=== PATIENT | female | born 1990 | race American Indian/Alaskan Native ===

== ENCOUNTER 2021-09-27 10:25 | Inpatient (IN) | payer OTHER ==
[2021-09-23 16:02] VITALS: BMI 29.0
[2021-09-27] MEDS ORDERED: TERBUTALINE SULFATE 1 MG/1 ML VIAL SQ ONE ×2 (11:08→11:19)
[2021-09-27] MEDS ORDERED: ELECTROLYTE-148 SOLN 1,000 ML IV SCH (11:15)
[2021-09-27 11:58] LABS: BASO % 0.5 % (0-2.0); EOS % 0.7 % (0-4.5); HEMATOCRIT 32.2 % (32.4-45.2); HEMOGLOBIN 11.2 GM/dL (10.7-15.3); LYMPH % 15.2 % (8-40); MCHC 34.8 g/dl (32.0-36.0); MEAN CELL VOLUME 94.8 fl (80-96); MEAN PLT VOLUME 8.3 fl (7.5-11.1); MONO % 5.5 % (3.8-10.2); NEUT % 78.1 % (42.8-82.8); PLATELET COUNT 200 10^3/uL (134-434); RDW 13.5 % (11.6-15.6); WHITE BLOOD COUNT 12.4 K/mm3 (4.0-10.0)
[2021-09-27 12:06] LABS: INR 0.91 (0.83-1.09); PROTHROMBIN TIME (PATIENT) 10.4 SEC (9.7-13.0)
[2021-09-27 12:09] LABS: ACTIVATED PTT 29.5 SECONDS (25.2-36.5)
[2021-09-27 12:18] LABS: CALCIUM 8.8 mg/dL (8.5-10.1)
[2021-09-27 12:19] LABS: BLOOD UREA NITROGEN 6.6 mg/dL (7-18)
[2021-09-27 12:22] LABS: CREATININE 0.5 mg/dL (0.55-1.3)
[2021-09-27 13:24] VITALS: BP 121/61; PULSE 72; TEMP 98.9
== END 2021-09-27 15:10 | disposition home or self-care (01) | DRG 833 ==
LOC: JLDR 10:25 → EDSTATUS 10:56
PROVIDERS: ADMIT Obstetrics & Gynecology; ATTEND Obstetrics & Gynecology
DX: O32.1XX0 Maternal care for breech presentation, not applicable or unspecified (principal); Z3A.38 38 weeks gestation of pregnancy
CPT/HCPCS: 36415; 80048; 85025; 85610; 85730; 86850; 86900; 86901

== ENCOUNTER 2021-10-04 09:35 | Inpatient (IN) | payer OTHER ==
[2021-10-04] MEDS ORDERED: ceFAZolin SODIUM 1 GM VIAL ONE (10:14)
[2021-10-04] MEDS ORDERED: CITRIC ACID/SODIUM CITRATE 30 ML UNIT-DOSE CUP PO ONE (10:15)
[2021-10-04] MEDS ORDERED: ELECTROLYTE-148 SOLN 1,000 ML IV SCH (10:15)
[2021-10-04] MEDS ORDERED: morphine SULFATE/PF 1 MG/2 ML (2cc Syringe - QUVA) ONE (10:22)
[2021-10-04] MEDS ORDERED: OXYTOCIN 20 UNITS in 0.9% NS 20 UNIT/1,000 ML INFUS.BAG IV ONE (10:22)
[2021-10-04] MEDS ORDERED: CEFAZOLIN 2 GM in DEXTROSE 5%-WATER - 100 ML IVPB ONE (10:30)
[2021-10-04] MEDS ORDERED: ceFAZolin 2 GRAM PREMIX BAG IVPB ONE (10:40)
[2021-10-04 10:47] VITALS: BMI 29.3
[2021-10-04] MEDS ORDERED: METHYLERGONOVINE MALEATE 0.2 MG/1 ML AMP IM PRN (11:04)
[2021-10-04] MEDS ORDERED: ePHEDrine SULFATE 50 MG/1 ML AMPULE ONE (11:48)
[2021-10-04] MEDS ORDERED: DEXAMETHASONE SOD PHOSPHATE 4 MG/1 ML VIAL ONE (12:14)
[2021-10-04] MEDS ORDERED: ONDANSETRON 4 MG/2 ML VIAL ONE (12:14)
[2021-10-04] MEDS ORDERED: KETOROLAC TROMETHAMINE 30 MG/1 ML VIAL ONE (12:14)
[2021-10-04] MEDS ORDERED: OXYTOCIN 10 UNITS/ML VIAL ONE (12:15)
[2021-10-04 12:29] LABS: CORD BASE EXCESS -0.3 mmol/L (0-2); CORD HCO3 25.9 mmHg (20-29); CORD pH 7.35 (7.14-7.44)
[2021-10-04 12:32] LABS: CORD HCO3 27.5 mmHg (20-29); CORD PCO2 64.4 mmHg (30-78); CORD pH 7.248 (7.14-7.44)
[2021-10-04] MEDS: OXYTOCIN 20 UNITS in 0.9% NS 20 UNIT/1,000 ML INFUS.BAG IV SCH (12:40)
[2021-10-04] MEDS ORDERED: morphine SULFATE/PF 1 MG/2 ML (2cc Syringe - QUVA) EP ONE (12:47)
[2021-10-04] MEDS ORDERED: ONDANSETRON 4 MG/2 ML VIAL IVPUSH PRN (12:47)
[2021-10-04] MEDS: IBUPROFEN 800 MG/8 ML IJ IVPB PRN (15:33)
[2021-10-04] MEDS: CLINDAMYCIN 600MG PREMIX IVPB 600 MG/50 ML BAG IVPB SCH (17:36)
[2021-10-04] MEDS: GENTAMICIN 80 MG PREMIXED IVPB 80 MG/100 ML BAG IVPB SCH (18:47)
[2021-10-04] MEDS ORDERED: oxyCODONE HCL 5 MG TABLET PO PRN ×2 (23:04)
[2021-10-05] MEDS: CLINDAMYCIN 600MG PREMIX IVPB 600 MG/50 ML BAG IVPB SCH ×2 (02:40→09:16)
[2021-10-05] MEDS: GENTAMICIN 80 MG PREMIXED IVPB 80 MG/100 ML BAG IVPB SCH ×2 (03:24→10:07)
[2021-10-05] MEDS: IBUPROFEN 800 MG/8 ML IJ IVPB PRN (05:09)
[2021-10-05 06:37] LABS: BASO % 0.4 % (0-2.0); EOS % 0.6 % (0-4.5); HEMOGLOBIN 10.2 GM/dL (10.7-15.3); LYMPH % 17.2 % (8-40); MCH 32.7 pg (25.7-33.7); MEAN PLT VOLUME 8.9 fl (7.5-11.1); NEUT % 75.8 % (42.8-82.8); PLATELET COUNT 214 10^3/uL (134-434); RBC 3.13 M/mm3 (3.60-5.2); RDW 13.1 % (11.6-15.6); WHITE BLOOD COUNT 16.1 K/mm3 (4.0-10.0)
[2021-10-05] MEDS: ACETAMINOPHEN 325 MG TABLET (FP) PO PRN (08:18)
[2021-10-05] MEDS ORDERED: ENOXAPARIN NA (PORCINE) 30 MG/0.3 ML DISP.SYRIN SQ SCH (10:00)
[2021-10-05] MEDS ORDERED: BISACODYL 10 MG SUPP.RECT RC PRN (11:04)
[2021-10-05] MEDS: SIMETHICONE 80 MG TAB.CHEW (FP) PO PRN ×2 (13:49→22:40)
[2021-10-05] MEDS: IBUPROFEN 600 MG TABLET (FP) PO PRN ×3 (13:49→22:39)
[2021-10-05] MEDS: OXYTOCIN 20 UNITS in 0.9% NS 20 UNIT/1,000 ML INFUS.BAG IV SCH (23:59)
[2021-10-06] MEDS: SIMETHICONE 80 MG TAB.CHEW (FP) PO PRN ×4 (04:24→23:29)
[2021-10-06] MEDS: IBUPROFEN 600 MG TABLET (FP) PO PRN ×3 (04:24→23:29)
[2021-10-06] MEDS: ACETAMINOPHEN 325 MG TABLET (FP) PO PRN ×2 (13:32→21:08)
[2021-10-06] MEDS: ENOXAPARIN NA (PORCINE) 30 MG/0.3 ML DISP.SYRIN SQ SCH (15:06)
[2021-10-07 07:59] LABS: BASO % 0.8 % (0-2.0); EOS % 2.8 % (0-4.5); HEMATOCRIT 31.3 % (32.4-45.2); HEMOGLOBIN 10.9 GM/dL (10.7-15.3); LYMPH % 25.5 % (8-40); MCH 33.2 pg (25.7-33.7); MCHC 34.7 g/dl (32.0-36.0); MEAN CELL VOLUME 95.7 fl (80-96); MEAN PLT VOLUME 8.4 fl (7.5-11.1); MONO % 8.6 % (3.8-10.2); NEUT % 62.3 % (42.8-82.8); PLATELET COUNT 255 10^3/uL (134-434); RBC 3.28 M/mm3 (3.60-5.2); RDW 13.8 % (11.6-15.6); WHITE BLOOD COUNT 9.1 K/mm3 (4.0-10.0)
[2021-10-07 08:38] VITALS: BP 115/73; PULSE 80; TEMP 98.1
[2021-10-07] MEDS: ENOXAPARIN NA (PORCINE) 30 MG/0.3 ML DISP.SYRIN SQ SCH (10:04)
== END 2021-10-07 11:55 | disposition home or self-care (01) | DRG 788 ==
LOC: JLDR 09:35 → J3W 13:57
PROVIDERS: ADMIT Obstetrics & Gynecology; ATTEND Obstetrics & Gynecology
PROC: 10D00Z1 Extraction of Products of Conception, Low, Open Approach (ICD-10-PCS; principal; 2021-10-04)
DX: O32.1XX0 Maternal care for breech presentation, not applicable or unspecified (principal); Z3A.39 39 weeks gestation of pregnancy; Z37.0 Single live birth
CPT/HCPCS: 36415; 36600; 82803; 85025; 88307-TC